=== PATIENT | female | born 2000 | race Caucasian/White ===

== ENCOUNTER → 2022-05-10 08:16 | Observation (INO) ==
[2022-05-10 04:18] LABS: Basophils % 0.4 %; Eosinophils # 0.1 K/mcL (0.0-0.6); Eosinophils % 0.5 %; Hemoglobin 11.1 g/dL (11.5-15.4); Immature Granulocytes % 1.7 % (0-4); Lymphocytes # 1.6 K/mcL (0.6-4.6); Lymphocytes % 14.3 %; Mean Corpuscular HGB Conc 33.6 g/dL (31.6-35.5); Mean Corpuscular Hemoglobin 30.9 pg (28.0-33.3); Mean Corpuscular Volume 91.9 fL (83.0-100.0); Mean Platelet Volume 10.9 fL (9.4-12.4); Monocytes # 1.3 K/mcL (0.0-1.3); Monocytes % 12.1 %; Neutrophils # 7.9 K/mcL (1.6-8.9); Platelet Count 195 K/mcL (140-400); Red Blood Count 3.59 M/mcL (3.82-4.97); Red Cell Distribution Width 12.3 % (11.5-14.5); White Blood Count 11.1 K/mcL (4.3-11.1)
[2022-05-10 04:38] LABS: Alanine Aminotransferase 9 Units/L (7-52); Aspartate Amino Transferase 14 Units/L (13-39); BUN/Creatinine Ratio 22 (6-26); Blood Urea Nitrogen 15 mg/dL (6-20); Lactate Dehydrogenase 130 Units/L (140-271); Uric Acid 5.5 mg/dL (2.3-7.6); eGFR For African Americans > 60 (> 60); eGFR For Non-African Americans > 60 (> 60)
[2022-05-10 04:46] LABS: Protein/Creatinine Ratio,Urine 0.17 mg/mg (0.00-0.20)
[~2022-05-10 08:16] MED LIST: *HR* Nalbuphine 10 MG/ML AMPUL IM ONE; *HR* Promethazine 25 MG/ML VIAL IM ONE; EPHEDrine 50 MG/ML VIAL IVP PRN; Epidural Premix (fent/bupiv) 110 ML EP SCH
== END | disposition home or self-care (01) ==
LOC: 1NENULAB
PROVIDERS: ADMIT Obstetrics & Gynecology; ATTEND Obstetrics & Gynecology

== ENCOUNTER 2022-05-10 22:16 | Inpatient (IN) ==
[~2022-05-10 22:16] MED LIST changes: -*HR* Nalbuphine 10 MG/ML AMPUL IM ONE; -*HR* Promethazine 25 MG/ML VIAL IM ONE; +Azithromycin 500 MG in 0.9 % Sodium Chloride 250 ML IVPB PRN; +Famotidine 20 MG/2 ML VIAL IVP PRN; +Metoclopramide 10 MG/2 ML VIAL IVP PRN; +Naloxone 0.4 MG/ML INJ IVP PRN; +Ondansetron 4 MG/2 ML VIAL IVP ONE; +Ringers Solution, Lactated 1,000 ML ONE
[2022-05-10] MEDS ORDERED: Ringers Solution, Lactated 1,000 ML IVC SCH (22:30)
[2022-05-10] MEDS ORDERED: Oxytocin 30 UNIT/503 ML BAG IVC SCH (22:45)
[2022-05-10 23:34] LABS: Basophils % 0.2 %; Eosinophils % 0.2 %; Hematocrit 35.6 % (35.3-44.9); Immature Granulocytes % 1.1 % (0-4); Lymphocytes # 1.4 K/mcL (0.6-4.6); Lymphocytes % 10.8 %; Mean Corpuscular HGB Conc 33.7 g/dL (31.6-35.5); Mean Corpuscular Hemoglobin 31.3 pg (28.0-33.3); Mean Corpuscular Volume 92.7 fL (83.0-100.0); Mean Platelet Volume 11.7 fL (9.4-12.4); Monocytes # 1.3 K/mcL (0.0-1.3); Monocytes % 10.2 %; Neutrophils # 10.1 K/mcL (1.6-8.9); Platelet Count 215 K/mcL (140-400); Red Blood Count 3.84 M/mcL (3.82-4.97); Red Cell Distribution Width 12.8 % (11.5-14.5); Segmented Neutrophils % 77.5 %
[2022-05-11 00:34] LABS: Amphetamine Screen,Urine Negative ng/mL (Cutoff=1000); Barbiturate Screen,Urine Negative ng/mL (Cutoff=200); Benzodiazepines Screen,Urine Negative ng/mL (Cutoff=200); Cannabinoid Screen,Urine Negative ng/mL (Cutoff = 50); Cocaine Screen,Urine Negative ng/mL (Cutoff= 300); Opiate Screen,Urine Negative ng/mL (Cutoff=300); Phencyclidine Screen,Urine Negative ng/mL (Cutoff=25)
[2022-05-11] MEDS ORDERED: Rho Immune Globulin 1,500 UNIT SYRINGE IM PRN (07:54)
[2022-05-11] MEDS ORDERED: Measles/Mumps/Rubella Vacc 0.5 ML VIAL SQ PRN (07:54)
[2022-05-11] MEDS ORDERED: Benzocaine/Menthol 56 GM AEROSOL SPRAY TP PRN (07:54)
[2022-05-11] MEDS ORDERED: OXYTOCIN/RINGERS LACTATE 10 UNIT/166.6 ML BAG IVC ONE (07:54)
[2022-05-11] MEDS ORDERED: Lanolin 7 G OINT...G. TP PRN (07:54)
[2022-05-11] MEDS ORDERED: Ondansetron ODT 4 MG TAB.RAPDIS SL PRN (07:54)
[2022-05-11] MEDS: Ibuprofen 600 MG TABLET PO SCH ×2 (09:54→15:32)
[2022-05-11] MEDS: Prenatal Vit/FA 1 EACH TABLET PO SCH (09:55)
[2022-05-11] MEDS: Acetaminophen 325 MG TABLET PO SCH ×2 (09:55→22:10)
[2022-05-12] MEDS: Ibuprofen 600 MG TABLET PO SCH ×2 (02:40→04:25)
[2022-05-12 04:37] LABS: Basophils # 0.1 K/mcL (0.0-0.2); Basophils % 0.3 %; Eosinophils # 0.2 K/mcL (0.0-0.6); Eosinophils % 1.2 %; Hematocrit 33.3 % (35.3-44.9); Hemoglobin 11.2 g/dL (11.5-15.4); Immature Granulocytes % 0.9 % (0-4); Lymphocytes # 2.7 K/mcL (0.6-4.6); Lymphocytes % 16.2 %; Mean Corpuscular HGB Conc 33.6 g/dL (31.6-35.5); Mean Corpuscular Hemoglobin 30.9 pg (28.0-33.3); Mean Corpuscular Volume 91.7 fL (83.0-100.0); Mean Platelet Volume 10.8 fL (9.4-12.4); Monocytes # 1.3 K/mcL (0.0-1.3); Monocytes % 8.2 %; Neutrophils # 11.9 K/mcL (1.6-8.9); Platelet Count 187 K/mcL (140-400); Red Blood Count 3.63 M/mcL (3.82-4.97); Red Cell Distribution Width 12.6 % (11.5-14.5); Segmented Neutrophils % 73.2 %; White Blood Count 16.3 K/mcL (4.3-11.1)
[2022-05-12 06:45] VITALS: BP 116/67; PULSE 59; TEMP 97.6; O2SAT 98
[2022-05-12] MEDS: Prenatal Vit/FA 1 EACH TABLET PO SCH (08:47)
[2022-05-12] MEDS: Acetaminophen 325 MG TABLET PO SCH (08:47)
== END 2022-05-12 14:50 | disposition home or self-care (01) | DRG 807 ==
LOC: 1NENULAB → 1NENUOBS 05-11 07:42
PROVIDERS: ADMIT Student in an Organized Health Care Education/Training Program; ATTEND Student in an Organized Health Care Education/Training Program